=== PATIENT | female | born 1975 ===

== ENCOUNTER 2019-04-16 11:51 | Emergency (ER) | payer MEDICAID ==
[2019-04-16] MEDS ORDERED: ONDANSETRON 4 MG/2 ML INJ IV STA (13:40)
[2019-04-16] MEDS ORDERED: HYDROcodone/ACETAMINOPHEN 5-325 MG TAB PO STA (13:40)
--- NOTE | 2019-04-16 14:23 | Cat Scan Report ---
CT HEAD WITHOUT CONTRAST INDICATION : Altered Mental Status. TECHNIQUE: Axial, coronal and sagittal CT imaging was performed from the skull apex through the skul l base without contrast. All CT scans at this location are performed using CT dose reduction for ALA RA by means of automated exposure control. COMPARISON: None available. FINDINGS: PARENCHYMA: No mass, midline shift, hemorrhage, extraaxial collection or acute territorial infarctio n. VENTRICLES: Symmetric and normal in size. SOFT TISSUES: No significant abnormality of the included soft tissues/orbits. BONES: No acute osseous abnormality. SINUSES: No significant abnormality. ADDITIONAL FINDINGS: None. IMPRESSION: No acute intracranial abnormality. Signer Name: Sumeet Mora MD Signed: 04/16/2019 2:19 PM Workstation Name: [id number]
--- NOTE | 2019-04-16 14:27 | Event Note ---
Date of service: 04/16/19 Face to Face: The patient is a 43-year-old female. This patient is not known to myself previously. She was reportedly sent to this department for confused behavior. The patient is a very poor historian. She is very confused. She does not have enclosed paperwork, with the exception of admission discharge medication reconciliation orders, apparently, with a diagnosis of opioid and benzodiazepine abuse The patient indicates she has bilateral lower extremity pain. She also indicates that she has chest pain, abdominal pain and headache. She cannot describe the nature of the pain. She indicates her pain gets worse with palpation. She knows her name, she is not sure where she is, she does not know the month, and she does not know the year. She is not accompanied by friends or family. Her last known well time is not explicitly known. When we attempt to clarify the nature of her complaints, the patient sits up, holds her head, and appears to be frustrated. Her motor exam is nonfocal, she is speaking in full sentences, she has a tender left lower quadrant, and her bilateral lower extremities appear to be swollen, with warmth, and some hyperemia. 2+ pulses noted in the bilateral upper and lower extremities. Suspect multifactorial etiology, likely including polypharmacy, with probable superimposed psychiatric component, however, patient will require medical workup and evaluation. Given broad differential diagnosis, CT scan of the brain, CT scan of the abdomen and pelvis, screening laboratory studies, EKG, medication reconciliation have been requested. She does not have a fever, there is no neck pain or neck stiffness, this is unlikely to be meningitis or central nervous sy stem infection. Psychiatric consultation has also been requested. There is no prior EKG available for comparison. The EKG shows a sinus rhythm, 87 bpm, there is low voltage, there is a left axis deviation, there is poor R progression, the EKG is abnormal, it is not consistent with ST elevation myocardial infarction There is no prior EKG available for comparison 5:10 PM, 04/16/2019 X-ray of the chest, bilateral lower extremities are unremarkable. Noncontrast CT scan of the brain, abdomen and pelvis negative for acute disease. DVT studies pending interpretation at this time. Lab Results 04/16/19 04/16/19 04/16/19 Range/Units 13:53 14:00 14:00 WBC 3.4 L (4.5-11.0) K/mm3 RBC 3.84 (3.65-5.03) M/mm3 Hgb 11.9 (10.1-14.3) gm/dl Hct 35.0 (30.3-42.9) % MCV 91 (79-97) fl MCH 31 (28-32) pg MCHC 34 (30-34) % RDW 14.7 (13.2-15.2) % Plt Count 227 (140-440) K/mm3 Lymph % (Auto) Loom Doffer [place] % (Auto) Loom Doffer Eos % (Auto) Loom Doffer Baso % (Auto) Loom Doffer Lymph # Loom Doffer [place] # Loom Doffer Eos # Loom Doffer Baso # Loom Doffer Seg Neutrophils % Loom Doffer Seg Neutrophils # Loom Doffer PT (12.2-14.9) Sec. INR (0.87-1.13) APTT (24.2-36.6) Sec. Sodium (137-145) mmol/L Potassium (3.6-5.0) mmol/L Chloride (98-107) mmol/L Carbon Dioxide (22-30) mmol/L Anion Gap mmol/L BUN (7-17) mg/dL Creatinine (0.7-1.2) mg/dL Estimated GFR ml/min BUN/Creatinine Ratio % Glucose (65-100) mg/dL Lactic Acid 1.30 (0.7-2.0) mmol/L Calcium (8.4-10.2) mg/dL Total Bilirubin (0.1-1.2) mg/dL AST (5-40) units/L ALT (7-56) units/L Alkaline Phosphatase (35-129) units/L Troponin T (0.00-0.029) ng/mL Total Protein (6.3-8.2) g/dL Albumin (3.9-5) g/dL Albumin/Globulin Ratio % Urine Opiates Screen Presumptive negative Urine Methadone Screen Presumptive negative Ur Barbiturates Screen Presumptive negative Ur Phencyclidine Scrn Presumptive negative Ur Amphetamines Screen Presumptive negative U Benzodiazepines Scrn Presumptive negative Urine Cocaine Screen Presumptive negative U Marijuana (THC) Screen Presumptive negative Drugs of Abuse Note Disclamer Plasma/Serum Alcohol (0-0.07) % 04/16/19 04/16/19 04/16/19 Range/Units 14:00 14:20 14:20 WBC (4.5-11.0) K/mm3 RBC (3.65-5.03) M/mm3 Hgb (10.1-14.3) gm/dl Hct (30.3-42.9) % MCV (79-97) fl MCH (28-32) pg MCHC (30-34) % RDW (13.2-15.2) % Plt Count (140-440) K/mm3 Lymph % (Auto) [place] % (Auto) Eos % (Auto) Baso % (Auto) Lymph # [place] # Eos # Baso # Seg Neutrophils % Seg Neutrophils # PT 12.8 (12.2-14.9) Sec. INR 0.95 (0.87-1.13) APTT 30.5 (24.2-36.6) Sec. Sodium 139 (137-145) mmol/L Potassium 4.6 (3.6-5.0) mmol/L Chloride 100.8 (98-107) mmol/L Carbon Dioxide 22 (22-30) mmol/L Anion Gap 21 mmol/L BUN 11 (7-17) mg/dL Creatinine 0.8 (0.7-1.2) mg/dL Estimated GFR > 60 ml/min BUN/Creatinine Ratio 14 % Glucose 89 (65-100) mg/dL Lactic Acid (0.7-2.0) mmol/L Calcium 9.8 (8.4-10.2) mg/dL Total Bilirubin 0.30 (0.1-1.2) mg/dL AST 17 (5-40) units/L ALT 12 (7-56) units/L Alkaline Phosphatase 52 (35-129) units/L Troponin T < 0.010 (0.00-0.029) ng/mL Total Protein 6.1 L (6.3-8.2) g/dL Albumin 3.8 L (3.9-5) g/dL Albumin/Globulin Ratio 1.7 % Urine Opiates Screen Urine Methadone Screen Ur Barbiturates Screen Ur Phencyclidine Scrn Ur Amphetamines Screen U Benzodiazepines Scrn Urine Cocaine Screen U Marijuana (THC) Screen Drugs of Abuse Note Plasma/Serum Alcohol < 0.01 (0-0.07) % Lab Results 04/16/19 04/16/19 04/16/19 Range/Units 13:53 14:00 14:00 WBC 3.4 L (4.5-11.0) K/mm3 RBC 3.84 (3.65-5.03) M/mm3 Hgb 11.9 (10.1-14.3) gm/dl Hct 35.0 (30.3-42.9) % MCV 91 (79-97) fl MCH 31 (28-32) pg MCHC 34 (30-34) % RDW 14.7 (13.2-15.2) % Plt Count 227 (140-440) K/mm3 Lymph % (Auto) Loom Doffer [place] % (Auto) Loom Doffer Eos % (Auto) Loom Doffer Baso % (Auto) Loom Doffer Lymph # Loom Doffer [place] # Loom Doffer Eos # Loom Doffer Baso # Loom Doffer Seg Neutrophils % Loom Doffer Seg Neutrophils # Loom Doffer PT (12.2-14.9) Sec. INR (0.87-1.13) APTT (24.2-36.6) Sec. Sodium (137-145) mmol/L Potassium (3.6-5.0) mmol/L Chloride (98-107) mmol/L Carbon Dioxide (22-30) mmol/L Anion Gap mmol/L BUN (7-17) mg/dL Creatinine (0.7-1.2) mg/dL Estimated GFR ml/min BUN/Creatinine Ratio % Glucose (65-100) mg/dL Lactic Acid 1.30 (0.7-2.0) mmol/L Calcium (8.4-10.2) mg/dL Total Bilirubin (0.1-1.2) mg/dL AST (5-40) units/L ALT (7-56) units/L Alkaline Phosphatase (35-129) units/L Troponin T (0.00-0.029) ng/mL Total Protein (6.3-8.2) g/dL Albumin (3.9-5) g/dL Albumin/Globulin Ratio % Urine Opiates Screen Presumptive negative Urine Methadone Screen Presumptive negative Ur Barbiturates Screen Presumptive negative Ur Phencyclidine Scrn Presumptive negative Ur Amphetamines Screen Presumptive negative U Benzodiazepines Scrn Presumptive negative Urine Cocaine Screen Presumptive negative U Marijuana (THC) Screen Presumptive negative Drugs of Abuse Note Disclamer Plasma/Serum Alcohol (0-0.07) % 04/16/19 04/16/19 04/16/19 Range/Units 14:00 14:20 14:20 WBC (4.5-11.0) K/mm3 RBC (3.65-5.03) M/mm3 Hgb (10.1-14.3) gm/dl Hct (30.3-42.9) % MCV (79-97) fl MCH (28-32) pg MCHC (30-34) % RDW (13.2-15.2) % Plt Count (140-440) K/mm3 Lymph % (Auto) [place] % (Auto) Eos % (Auto) Baso % (Auto) Lymph # [place] # Eos # Baso # Seg Neutrophils % Seg Neutrophils # PT 12.8 (12.2-14.9) Sec. INR 0.95 (0.87-1.13) APTT 30.5 (24.2-36.6) Sec. Sodium 139 (137-145) mmol/L Potassium 4.6 (3.6-5.0) mmol/L Chloride 100.8 (98-107) mmol/L Carbon Dioxide 22 (22-30) mmol/L Anion Gap 21 mmol/L BUN 11 (7-17) mg/dL Creatinine 0.8 (0.7-1.2) mg/dL Estimated GFR > 60 ml/min BUN/Creatinine Ratio 14 % Glucose 89 (65-100) mg/dL Lactic Acid (0.7-2.0) mmol/L Calcium 9.8 (8.4-10.2) mg/dL Total Bilirubin 0.30 (0.1-1.2) mg/dL AST 17 (5-40) units/L ALT 12 (7-56) units/L Alkaline Phosphatase 52 (35-129) units/L Troponin T < 0.010 (0.00-0.029) ng/mL Total Protein 6.1 L (6.3-8.2) g/dL Albumin 3.8 L (3.9-5) g/dL Albumin/Globulin Ratio 1.7 % Urine Opiates Screen Urine Methadone Screen Ur Barbiturates Screen Ur Phencyclidine Scrn Ur Amphetamines Screen U Benzodiazepines Scrn Urine Cocaine Screen U Marijuana (THC) Screen Drugs of Abuse Note Plasma/Serum Alcohol < 0.01 (0-0.07) % Vital Signs 04/16/19 12:27 Temperature 97.8 F Pulse Rate 76 Respiratory 18 Rate Blood Pressure 102/46 O2 Sat by Pulse 97 Oximetry Reassessed at 6:00 PM, 04/16/2019 DVT study negative. Mental status much improved. X-rays negative. Mentating appropriately. At this point in time, does not meet criteria for hospitaliza tion or medical admission.
[2019-04-16 14:28] LABS: Hemoglobin 11.9 gm/dl (10.1-14.3); Mean Corpuscular HGB Conc 34 % (30-34); Mean Corpuscular Volume 91 fl (79-97); Red Blood Count 3.84 M/mm3 (3.65-5.03); Red Cell Distribution Width 14.7 % (13.2-15.2)
[2019-04-16 14:30] LABS: Platelet Count 227 K/mm3 (140-440)
[2019-04-16 14:38] LABS: Amphetamine Screen,Urine PRESUMPTIVE NEGATIVE; Benzodiazepines Screen,Urine PRESUMPTIVE NEGATIVE; Cannabinoid Screen,Urine PRESUMPTIVE NEGATIVE; Cocaine Screen,Urine PRESUMPTIVE NEGATIVE; Methadone Screen,Urine PRESUMPTIVE NEGATIVE; Opiate Screen,Urine PRESUMPTIVE NEGATIVE
[2019-04-16 14:48] LABS: INR 0.95 (0.87-1.13)
[2019-04-16 14:55] LABS: Partial Thromboplastin Time 30.5 Sec. (24.2-36.6)
[2019-04-16 15:11] LABS: Alanine Aminotransferase 12 units/L (7-56); Albumin 3.8 g/dL (3.9-5); BUN/Creatinine Ratio 14; Blood Urea Nitrogen 11 mg/dL (7-17); Calcium 9.8 mg/dL (8.4-10.2); Hemolysis Index 24
--- NOTE | 2019-04-16 15:52 | Cat Scan Report ---
CT ABDOMEN AND PELVIS WITHOUT CONTRAST HISTORY: Left lower quadrant abdominal pain, confusion COMPARISON: None. TECHNIQUE: Axial CT images were obtained through the abdomen and pelvis without IV contrast. Sagittal and coronal reformatted images. All CT scans at this location are performed using CT dose reduction for ALARA by means of automated exposure control. FINDINGS: CT ABDOMEN: Lung Bases: Small bilateral layering pleural effusions measure up to 1 cm in thickness. There are mil d congestive changes in the lower lung zones. Heart size is within normal limits. Liver: No significant abnormality. Biliary: No significant abnormality. Spleen: No significant abnormality. Unenlarged. Pancreas: No significant abnormality. Adrenals: A 3 mm calyceal stone is noted in the mid left kidney. No associated hydronephrosis. The ki dneys and collecting systems are unremarkable otherwise. Kidneys: No significant abnormality. Lymphatics: No lymphadenopathy. Vasculature: No significant abnormality. Bowel/Peritoneum: No significant abnormality. No free air. No free fluid. There is moderate fecal ret ention in the colon. The appendix is not confidently identified. CT PELVIS: : Hysterectomy changes. The ovaries are unremarkable. Osseous Structures: No significant abnormality. Additional Findings: None IMPRESSION: No acute inflammatory process is identified. 3 mm left renal stone, nonobstructing. Mild constipation. Assumed hysterectomy and appendectomy. Small bilateral pleural effusions. Signer Name: Pastor Madera Jr, MD Signed: 04/16/2019 3:47 PM Workstation Name: [id number]
--- NOTE | 2019-04-16 17:13 | XRay Report ---
CHEST 1 VIEW 04/16/2019 4:34 PM INDICATION / CLINICAL INFORMATION: Chest pain. COMPARISON: None available. FINDINGS: SUPPORT DEVICES: None. HEART / MEDIASTINUM: No significant abnormality. LUNGS / PLEURA: No significant pulmonary or pleural abnormality. No pneumothorax. ADDITIONAL FINDINGS: No significant additional findings. IMPRESSION: 1. No acute findings. Signer Name: Issac Salmeron MD Signed: 04/16/2019 5:09 PM Workstation Name: [id number]
--- NOTE | 2019-04-16 17:14 | XRay Report ---
XR tib/fib BILAT 2V INDICATION / CLINICAL INFORMATION: Bilateral lower extremity erythema and altered mental status. COMPARISON: None available. FINDINGS: BONES/JOINT(S): No acute fracture or subluxation. No significant degenerative changes. SOFT TISSUES: There is no soft tissue gas or radiopaque foreign body. There is nonspecific subcutaneo us edema in both calves. ADDITIONAL FINDINGS: None. Signer Name: Issac Salmeron MD Signed: 04/16/2019 5:09 PM Workstation Name: [id number]
--- NOTE | 2019-04-16 17:16 | Vascular Lab Report ---
DUPLEX DOPPLER BILATERAL LOWER EXTREMITY VEINS INDICATION: Lower extremity pain and swelling FINDINGS: There is no thrombus within the deep veins of either lower extremity from the common femoral to the c correction veins. There is normal compression and augmentation on spectral analysis. IMPRESSION: No sonographic evidence for DVT in either lower extremity. Signer Name: Issac Salmeron MD Signed: 04/16/2019 5:12 PM Workstation Name: [email or web address] [id number]
[2019-04-16] MEDS ORDERED: CLINDAMYCIN 600 MG/50 mL 600 MG/50 ML BAG IV STA (17:26)
--- NOTE | 2019-04-16 17:33 | Emergency Department Report ---
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 Toxic Vacuolation Dohle Bodies Pelger-Huet Anomaly Negrito Rods Platelet Estimate Clumped Platelets Plt Clumps, EDTA Large Platelets Giant Platelets Platelet Satelliting Plt Morphology Comment RBC Morphology Dimorphic RBCs Polychromasia Hypochromasia Poikilocytosis Anisocytosis Microcytosis Macrocytosis Spherocytes Pappenheimer Bodies Sickle Cells Target Cells Tear Drop Cells Ovalocytes Stomatocytes Helmet Cells Guzman-Hallwood Bodies Palatine Rings Duane Cells Bite Cells Crenated Cell Elliptocytes Acanthocytes (Spur) Rouleaux Hemoglobin C Crystals Schistocytes Malaria parasites Dudley Bodies Hem Pathologist Commnt PT (12.2-14.9) Sec. INR (0.87-1.13) APTT (24.2-36.6) Sec. Sodium (137-145) mmol/L Potassium (3.6-5.0) mmol/L Chloride (98-107) mmol/L Carbon Dioxide (22-30) mmol/L Anion Gap mmol/L BUN (7-17) mg/dL Creatinine (0.7-1.2) mg/dL Estimated GFR ml/min BUN/Creatinine Ratio % Glucose (65-100) mg/dL Lactic Acid 0.70 (0.7-2.0) mmol/L Calcium (8.4-10.2) mg/dL Total Bilirubin (0.1-1.2) mg/dL AST (5-40) units/L ALT (7-56) units/L Alkaline Phosphatase (35-129) units/L Ammonia 30.0 (25-60) umol/L Troponin T (0.00-0.029) ng/mL Total Protein (6.3-8.2) g/dL Albumin (3.9-5) g/dL Albumin/Globulin Ratio % TSH (0.270-4.200) mlU/mL Free T4 (0.76-1.46) ng/dL HCG, Quant < 2 (0-4) mIU/mL Urine Color (Yellow) Urine Turbidity (Clear) Urine pH (5.0-7.0) Ur Specific [place] (1.003-1.030) Urine Protein (Negative) mg/dL Urine Glucose (UA) (Negative) mg/dL Urine Ketones (Negative) mg/dL Urine Blood (Negative) Urine Nitrite (Negative) Urine Bilirubin (Negative) Urine Urobilinogen (<2.0) mg/dL Ur Leukocyte Esterase (Negative) Urine WBC (Auto) (0.0-6.0) /HPF Urine RBC (Auto) (0.0-6.0) /HPF Salicylates (2.8-20.0) mg/dL Urine Opiates Screen Urine Methadone Screen Acetaminophen (10.0-30.0) ug/mL Ur Barbiturates Screen Valproic Acid (50-100) ug/mL Ur Phencyclidine Scrn Ur Amphetamines Screen U Benzodiazepines Scrn Urine Cocaine Screen U Marijuana (THC) Screen Drugs of Abuse Note Plasma/Serum Alcohol (0-0.07) % 04/16/19 04/16/19 04/16/19 Range/Units 16:40 16:50 17:34 WBC (4.5-11.0) K/mm3 RBC (3.65-5.03) M/mm3 Hgb (10.1-14.3) gm/dl Hct (30.3-42.9) % MCV (79-97) fl MCH (28-32) pg MCHC (30-34) % RDW (13.2-15.2) % Plt Count (140-440) K/mm3 Lymph % (Auto) Crawford % (Auto) Eos % (Auto) Baso % (Auto) Lymph # Crawford # Eos # Baso # Add Manual Diff Total Counted Seg Neutrophils % Seg Neuts % (Manual) (40.0-70.0) % Band Neutrophils % % Lymphocytes % (Manual) (13.4-35.0) % Reactive Lymphs % (Man) % Monocytes % (Manual) (0.0-7.3) % Eosinophils % (Manual) (0.0-4.3) % Basophils % (Manual) (0.0-1.8) % Metamyelocytes % % Myelocytes % % Promyelocytes % % Blast Cells % % Nucleated RBC % Seg Neutrophils # Seg Neutrophils # Man (1.8-7.7) K/mm3 Band Neutrophils # K/mm3 Lymphocytes # (Manual) (1.2-5.4) K/mm3 Abs React Lymphs (Man) K/mm3 Monocytes # (Manual) (0.0-0.8) K/mm3 Eosinophils # (Manual) (0.0-0.4) K/mm3 Basophils # (Manual) (0.0-0.1) K/mm3 Metamyelocytes # K/mm3 Myelocytes # K/mm3 Promyelocytes # K/mm3 Blast Cells # K/mm3 WBC Morphology Hypersegmented Neuts Hyposegmented Neuts Hypogranular Neuts Smudge Cells Toxic Granulation Toxic Vacuolation Dohle Bodies Pelger-Huet Anomaly Negrito Rods Platelet Estimate Clumped Platelets Plt Clumps, EDTA Large Platelets Giant Platelets Platelet Satelliting Plt Morphology Comment RBC Morphology Dimorphic RBCs Polychromasia Hypochromasia Poikilocytosis Anisocytosis Microcytosis Macrocytosis Spherocytes Pappenheimer Bodies Sickle Cells Target Cells Tear Drop Cells Ovalocytes Stomatocytes Helmet Cells Guzman-Hallwood Bodies [place] Rings Duane Cells Bite Cells Crenated Cell Elliptocytes Acanthocytes (Spur) Rouleaux Hemoglobin C Crystals Schistocytes Malaria parasites Dudley Bodies Hem Pathologist Commnt PT (12.2-14.9) Sec. INR (0.87-1.13) APTT (24.2-36.6) Sec. Sodium (137-145) mmol/L Potassium (3.6-5.0) mmol/L Chloride (98-107) mmol/L Carbon Dioxide (22-30) mmol/L Anion Gap mmol/L BUN (7-17) mg/dL Creatinine (0.7-1.2) mg/dL Estimated GFR ml/min BUN/Creatinine Ratio % Glucose (65-100) mg/dL Lactic Acid (0.7-2.0) mmol/L Calcium (8.4-10.2) mg/dL Total Bilirubin (0.1-1.2) mg/dL AST (5-40) units/L ALT (7-56) units/L Alkaline Phosphatase (35-129) units/L Ammonia (25-60) umol/L Troponin T < 0.010 (0.00-0.029) ng/mL Total Protein (6.3-8.2) g/dL Albumin (3.9-5) g/dL Albumin/Globulin Ratio % TSH (0.270-4.200) mlU/mL Free T4 0.66 L (0.76-1.46) ng/dL HCG, Quant (0-4) mIU/mL Urine Color Yellow (Yellow) Urine Turbidity Clear (Clear) Urine pH 6.0 (5.0-7.0) Ur Specific [place] 1.011 (1.003-1.030) Urine Protein <15 mg/dl (Negative) mg/dL Urine Glucose (UA) Neg (Negative) mg/dL Urine Ketones Neg (Negative) mg/dL Urine Blood Neg (Negative) Urine Nitrite Neg (Negative) Urine Bilirubin Neg (Negative) Urine Urobilinogen < 2.0 (<2.0) mg/dL Ur Leukocyte Esterase Neg (Negative) Urine WBC (Auto) < 1.0 (0.0-6.0) /HPF Urine RBC (Auto) < 1.0 (0.0-6.0) /HPF Salicylates (2.8-20.0) mg/dL Urine Opiates Screen Urine Methadone Screen Acetaminophen (10.0-30.0) ug/mL Ur Barbiturates Screen Valproic Acid (50-100) ug/mL Ur Phencyclidine Scrn Ur Amphetamines Screen U Benzodiazepines Scrn Urine Cocaine Screen U Marijuana (THC) Screen Drugs of Abuse Note Plasma/Serum Alcohol (0-0.07) % - EKG Data -: EKG Interpreted by Me - Radiology Data Radiology results: pending, report reviewed, image reviewed Critical care attestation.: If time is entered above; I have spent that time in minutes in the direct care of this critically ill patient, excluding procedure time.
[2019-04-16 17:42] LABS: Anisocytosis Few; Basophils % (Manual) 0 % (0.0-1.8); Stomatocytes Few; Total Cells Counted 100
[2019-04-16 17:43] LABS: Large Platelets 1+; Platelet Estimate Consistent w Auto
[2019-04-16 18:25] LABS: Bilirubin,Urine NEG (Negative); Blood,Urine NEG (Negative); Color,Urine Yellow (Yellow); Protein,Urine <15 mg/dL mg/dL (Negative); Urobilinogen,Urine < 2.0 mg/dL (<2.0)
[2019-04-16 18:41] LABS: RBC,Urine < 1.0 /HPF (0.0-6.0); WBC,Urine < 1.0 /HPF (0.0-6.0)
[2019-04-16] MEDS ORDERED: HALOPERIDOL LACTATE 5 MG/1 ML INJ IM PRN (18:48)
[2019-04-16] MEDS ORDERED: ALPRAZolam 1 MG TAB PO ONE (22:15)
[2019-04-16] MEDS ORDERED: ALPRAZolam 1 MG TAB ONE (22:18)
[2019-04-16] MEDS ORDERED: ONDANSETRON 4 MG ODT TAB PO PRN (22:21)
[2019-04-17] MEDS: CLINDAMYCIN 300 MG CAP PO SCH ×4 (00:30→20:00)
[2019-04-17] MEDS ORDERED: LORazepam 1 MG TAB PO ONE (04:46)
[2019-04-17] MEDS: LORazepam 2 MG/ML VIAL IM PRN ×2 (09:42→15:30)
--- NOTE | 2019-04-17 13:27 | Consultation ---
History of Present Illness - Reason for Consult Consult date: 04/17/19 Reason for consult: PSYCHIATRIC ASSESSMENT - History of Present Psychiatric Illness Ms Gonzalez is a 43-year-old female. Patient is alert and oriented to name only patient is dressed appropriately, the patient maintained intermittent eye contact. Patient is unable to give details off why she was brought to the hospital. According To the patient's chart she has a history of depression, anxiety and PTSD.when asked about suicidal homicidal ideation the patient paused for a long Time and then nodded her head indicating no , but she appears unsure. The patient denies seeing or hearing things with a long pause then nodding her head indicating no. The patient speech is pressured, patient is noted confused and disorganized. Patient noted with anxiety trying to remember things. Patient reports that she is scared, patient kept rocking back and forth. When asked about eating and sleeping patient found it hard to answer the question.when asked about medication that she is taking, the patient started crying and was unable to remember. PAST PSYCHIATRIC HISTORY: UNABLE TO ANSWER PAST MEDICAL HISTORY: Family Psychiatric History None reported or documented SOCIAL HISTORY unable to answer confused REVIEW OF SYSTEMS ROS cannot be reliably obtained from the patient due to her confusion and somnolence. MENTAL STATUS pt confused RECOMMENDATIONS MEDICATIONS: start buspar 15mg bid start depakote 500mg bid start prasosin 5mg hs start seroquel 400mg qhs start trazodone 100mg qhs Risks, benefits and alternatives of medications discussed with the patient, questions answered and consent obtained from patient. PSYCHOTHERAPY: Supportive psychotherapy provided MEDICAL: Per primary team DELIRIUM PRECAUTIONS: Please re-orient patient frequently, keep lights on during the day, and minimize benzodiazepines and opiates as these medications could worsen patient's confusion. HISTORICAL GUIDE: DISPOSITION: Based on my evaluation, the patient is unable to demonstrate understanding, appreciation, or reasoning regarding her medical condition and need for treatment. At this time I do not believe that the patient has decision- making capacity, indication for acute inpatient psychiatric hospitalization at this time is warranted, the patient is confused , disorganized LEGAL STATUS: 1013 FOLLOW-UP: Will follow Medications and Allergies Allergies Allergy/AdvReac Type Severity Reaction Status Date / Time No Known Allergies Allergy Unverified 04/16/19 12:34 Home Medications Medication Instructions Recorded Confirmed Last Taken Type Buprenorphine HCl/Naloxone HCl 1 each SL BID 04/16/19 04/16/19 Unknown History [Suboxone 2 mg-0.5 mg Sl Film] Citalopram Hydrobromide [Celexa] 40 mg PO DAILY 04/16/19 04/16/19 Unknown History Divalproex ER [DepaKOTE ER] 500 mg PO BID 04/16/19 04/16/19 Unknown History Prazosin [Minipress] 5 mg PO HS 04/16/19 04/16/19 Unknown History Quetiapine Fumarate [SEROquel] 400 mg PO HS 04/16/19 04/16/19 Unknown History busPIRone [Buspar] 15 mg PO BID 04/16/19 04/16/19 Unknown History cloNIDine [Catapres] 0.1 mg PO QHS 04/16/19 04/16/19 Unknown History levETIRAcetam [Keppra] 500 mg PO BID 04/16/19 04/16/19 Unknown History traZODone [Desyrel] 100 mg PO QHS 04/16/19 04/16/19 Unknown History Active Meds: Active Medications Clindamycin HCl (Cleocin) 300 mg PO Q6HR DARIELA Stop: 04/23/19 18:01 Last Admin: 04/17/19 12:56 Dose: 300 mg Documented by: Haloperidol Lactate (Haldol) 5 mg IM Q6HR PRN PRN Reason: Agitation Lorazepam (Ativan) 2 mg IM Q4HR PRN PRN Reason: Agitation Last Admin: 04/17/19 09:42 Dose: 2 mg Documented by: Ondansetron HCl (Zofran Odt) 4 mg PO Q6HR PRN PRN Reason: Nausea Mental Status Exam - Vital signs Last Vital Signs Temp 98.4 F 04/17/19 01:35 Pulse 81 04/17/19 01:35 Resp 18 04/17/19 01:35 BP 101/56 04/17/19 01:35 Pulse Ox 96 04/17/19 01:35 Results Result Diagrams: 04/16/19 14:00 04/16/19 14:20 Abnormal lab results 04/16/19 04/16/19 04/16/19 Range/Units 14:00 14:20 15:14 WBC 3.4 L (4.5-11.0) K/mm3 Seg Neuts % (Manual) 31.0 L (40.0-70.0) % Lymphocytes % (Manual) 49.0 H (13.4-35.0) % Monocytes % (Manual) 16.0 H (0.0-7.3) % Seg Neutrophils # Man 1.1 L (1.8-7.7) K/mm3 Total Protein 6.1 L (6.3-8.2) g/dL Albumin 3.8 L (3.9-5) g/dL TSH (0.270-4.200) mlU/mL Free T4 (0.76-1.46) ng/dL Salicylates < 0.3 L (2.8-20.0) mg/dL Acetaminophen (10.0-30.0) ug/mL 04/16/19 04/16/19 04/16/19 Range/Units 15:14 15:14 16:40 WBC (4.5-11.0) K/mm3 Seg Neuts % (Manual) (40.0-70.0) % Lymphocytes % (Manual) (13.4-35.0) % Monocytes % (Manual) (0.0-7.3) % Seg Neutrophils # Man (1.8-7.7) K/mm3 Total Protein (6.3-8.2) g/dL Albumin (3.9-5) g/dL TSH 5.140 H (0.270-4.200) mlU/mL Free T4 0.66 L (0.76-1.46) ng/dL Salicylates (2.8-20.0) mg/dL Acetaminophen < 5.0 L (10.0-30.0) ug/mL All other labs normal.
[2019-04-17 19:44] VITALS: BP 117/70
[2019-04-17] MEDS ORDERED: QUEtiapine 200 MG TAB PO SCH (22:00)
[2019-04-17] MEDS ORDERED: traZODone 100 MG TAB PO SCH (22:00)
[2019-04-17] MEDS ORDERED: QUETIAPINE FUMARATE 400 MG PO SCH (22:00)
[2019-04-17] MEDS ORDERED: DIVALPROEX ER 500 MG TAB PO SCH (22:00)
[2019-04-17] MEDS ORDERED: busPIRone 10 MG TAB PO SCH (22:00)
[2019-04-17] MEDS ORDERED: PRAZOSIN 5 MG CAP PO SCH (22:00)
[2019-04-18] MEDS ORDERED: CITALOPRAM 20 MG TAB PO SCH (10:00)
[2019-04-18] MEDS ORDERED: CITALOPRAM HYDROBROMIDE 40 MG PO SCH (10:00)
== END 2019-04-17 23:33 ==
LOC: EEVIPCON 11:51 → ED 11:51
DX: R46.89 Other symptoms and signs involving appearance and behavior (principal); G40.909 Epilepsy, unspecified, not intractable, without status epilepticus; Z79.899 Other long term (current) drug therapy
CPT/HCPCS: 36415; 70450; 71045; 73590; 74176; 80053; 80164; 80307; 81001; 82140; 84439; 84443; 84484; 84702; 85007; 85025; 85610; 85730; 93005; 93010; 93970; 96365; 96372; 96375; 99285; J2060; J2405; 80320; G0480

== ENCOUNTER 2021-11-04 20:38 | Emergency (ER) | payer SELFPAY ==
[2021-11-05 00:27] LABS: Amphetamine Screen,Urine PRESUMPTIVE NEGATIVE; Benzodiazepines Screen,Urine PRESUMPTIVE NEGATIVE; Cannabinoid Screen,Urine PRESUMPTIVE POSITIVE; Cocaine Screen,Urine PRESUMPTIVE NEGATIVE; Methadone Screen,Urine PRESUMPTIVE NEGATIVE; Opiate Screen,Urine PRESUMPTIVE NEGATIVE
[2021-11-05 00:31] LABS: Color,Urine Colorless (Yellow)
[2021-11-05 00:35] LABS: RBC,Urine < 1.0 /HPF (0.0-6.0)
[2021-11-05 00:35] LABS: Basophils % (Auto) 0.3 % (0.0-1.8); Eosinophils # (Auto) 0.2 K/mm3 (0.0-0.4); Eosinophils % (Auto) 3.2 % (0.0-4.3); Hemoglobin 13.6 gm/dl (10.1-14.3); Lymphocytes # (Auto) 1.5 K/mm3 (1.2-5.4); Lymphocytes % (Auto) 27.6 % (13.4-35.0); Mean Corpuscular HGB Conc 34 % (30-34); Mean Corpuscular Volume 92 fl (79-97); Monocytes # (Auto) 0.5 K/mm3 (0.0-0.8); Monocytes % (Auto) 9.2 % (0.0-7.3); Platelet Count 253 K/mm3 (140-440); Red Blood Count 4.35 M/mm3 (3.65-5.03); Red Cell Distribution Width 14.2 % (13.2-15.2)
[2021-11-05 00:36] LABS: WBC,Urine < 1.0 /HPF (0.0-6.0)
[2021-11-05 00:47] LABS: Blood Urea Nitrogen 10 mg/dL (7-17); Calcium 9.6 mg/dL (8.4-10.2); Hemolysis Index 8
[2021-11-05 00:48] LABS: BUN/Creatinine Ratio 14
--- NOTE | 2021-11-05 01:57 | Emergency Department Report ---
ED Medical Clearance HPI - General Chief complaint: Medical Clearance Stated complaint: MEDICAL CLEARANCE Time Seen by Provider: 11/05/21 00:40 Source: patient, EMS Mode of arrival: Stretcher Limitations: No Limitations - History of Present Illness Initial comments: Patient is a 46-year-old female who presents from rehab after she returned from the pharmacy appearing altered. Patient denies using but states that she thinks she is still detoxing. She was at [facility] for 5 days prior to going to [place] yesterday. They sent her here this evening for medical clearance. She states she was going to the pharmacy to roller picker her medications but she was unable to fill them due to insurance. Patient's originally told me she was unable to fill any of her medications including her Keppra and stated she was very concerned that she would have a seizure. MD Complaint: medical clearance request Home medications: Home Medications Medication Instructions Recorded Confirmed Last Taken Buprenorphine HCl/Naloxone HCl 1 each SL BID 04/16/19 04/16/19 Unknown [Suboxone 2 mg-0.5 mg Sl Film] Citalopram Hydrobromide [Celexa] 40 mg PO DAILY 04/16/19 04/16/19 Unknown Divalproex ER [DepaKOTE ER] 500 mg PO BID 04/16/19 04/16/19 Unknown Prazosin [Minipress] 5 mg PO HS 04/16/19 04/16/19 Unknown Quetiapine Fumarate [SEROquel] 400 mg PO HS 04/16/19 04/16/19 Unknown busPIRone [Buspar] 15 mg PO BID 04/16/19 04/16/19 Unknown cloNIDine [Catapres] 0.1 mg PO QHS 04/16/19 04/16/19 Unknown levETIRAcetam [Keppra] 500 mg PO BID 04/16/19 04/16/19 Unknown traZODone [Desyrel] 100 mg PO QHS 04/16/19 04/16/19 Unknown Citalopram 600 mg pe PO QDAY 04/30/19 12/07/20 12/07/20 17:24 Divalproex ER [DepaKOTE ER] 500 mg PO BID 04/30/19 12/07/20 12/05/20 19:00 Prazosin [Minipress] 5 mg PO DAILY 04/30/19 12/07/20 12/05/20 19:00 busPIRone [Buspar] 10 tab PO BID 04/30/19 12/07/20 Unknown cloNIDine [Catapres] 0.1 mg PO BID 04/30/19 12/07/20 Unknown hydrOXYzine HCL [Atarax] 50 mg PO DAILY 04/30/19 12/07/20 Unknown levETIRAcetam [Keppra TAB] 1,000 mg PO BID 04/30/19 12/07/20 12/07/20 07:00 traZODone [Desyrel] 100 mg PO DAILY 04/30/19 12/07/20 Unknown SEROquel 600 mg PO DAILY 12/07/20 12/07/20 12/06/20 19:00 Previous Rx's Medication Instructions Recorded Last Taken Type ALPRAZolam [Xanax TAB] 0.25 mg PO BID PRN #6 tab 04/30/19 12/05/20 19:00 Rx LORazepam [Ativan] 1 mg PO BID #6 tab 12/07/20 Unknown Rx Ondansetron [Zofran Odt] 4 mg PO Q6HR PRN #15 tab.rapdis 12/23/20 Unknown Rx Allergies/Adverse reactions: Allergies Allergy/AdvReac Type Severity Reaction Status Date / Time No Known Allergies Allergy Unverified 10/24/21 09:10 ED Review of Systems ROS: Stated complaint: MEDICAL CLEARANCE Other details as noted in HPI Comment: All other systems reviewed and negative Constitutional: denies: chills, fever Eyes: denies: vision change ENT: denies: throat pain, congestion Respiratory: denies: cough, shortness of breath Cardiovascular: denies: chest pain, palpitations, edema Endocrine: denies: intolerance to cold, intolerance to heat, unexplained weight gain, unexplained weight loss Gastrointestinal: denies: abdominal pain, nausea, vomiting, diarrhea, melena, hematochezia Genitourinary: denies: dysuria, frequency, hematuria Musculoskeletal: denies: back pain Skin: denies: rash Neurological: denies: headache, weakness, numbness, paresthesias Psychiatric: depression (Chronic). denies: anxiety (Chronic), homicidal thoughts, suicidal thoughts Hematological/Lymphatic: denies: easy bleeding, easy bruising ED Past Medical Hx - Past Medical History Previous Medical History?: Yes Hx Seizures: Yes Hx Psychiatric Treatment: Yes (depression, anxiety, PTSD) - Surgical History Past Surgical History?: Yes Additional Surgical History: hysterectomy - Social History Smoking Status: Current Every Day Smoker Substance Use Type: None - Medications Home Medications: Home Medications Medication Instructions Recorded Confirmed Last Taken Type Buprenorphine HCl/Naloxone HCl 1 each SL BID 04/16/19 04/16/19 Unknown History [Suboxone 2 mg-0.5 mg Sl Film] Citalopram Hydrobromide [Celexa] 40 mg PO DAILY 04/16/19 04/16/19 Unknown History Divalproex ER [DepaKOTE ER] 500 mg PO BID 04/16/19 04/16/19 Unknown History Prazosin [Minipress] 5 mg PO HS 04/16/19 04/16/19 Unknown History Quetiapine Fumarate [SEROquel] 400 mg PO HS 04/16/19 04/16/19 Unknown History busPIRone [Buspar] 15 mg PO BID 04/16/19 04/16/19 Unknown History cloNIDine [Catapres] 0.1 mg PO QHS 04/16/19 04/16/19 Unknown History levETIRAcetam [Keppra] 500 mg PO BID 04/16/19 04/16/19 Unknown History traZODone [Desyrel] 100 mg PO QHS 04/16/19 04/16/19 Unknown History ALPRAZolam [Xanax TAB] 0.25 mg PO BID PRN #6 tab 04/30/19 12/07/20 12/05/20 19:00 Rx Citalopram 600 mg pe PO QDAY 04/30/19 12/07/20 12/07/20 17:24 History Divalproex ER [DepaKOTE ER] 500 mg PO BID 04/30/19 12/07/20 12/05/20 19:00 History Prazosin [Minipress] 5 mg PO DAILY 04/30/19 12/07/20 12/05/20 19:00 History busPIRone [Buspar] 10 tab PO BID 04/30/19 12/07/20 Unknown History cloNIDine [Catapres] 0.1 mg PO BID 04/30/19 12/07/20 Unknown History hydrOXYzine HCL [Atarax] 50 mg PO DAILY 04/30/19 12/07/20 Unknown History levETIRAcetam [Keppra TAB] 1,000 mg PO BID 04/30/19 12/07/20 12/07/20 07:00 History traZODone [Desyrel] 100 mg PO DAILY 04/30/19 12/07/20 Unknown History LORazepam [Ativan] 1 mg PO BID #6 tab 12/07/20 Unknown Rx SEROquel 600 mg PO DAILY 12/07/20 12/07/20 12/06/20 19:00 History Ondansetron [Zofran Odt] 4 mg PO Q6HR PRN #15 tab.rapdis 12/23/20 Unknown Rx ED Physical Exam - General Limitations: No Limitations General appearance: alert, in no apparent distress - Head Head exam: Present: atraumatic, normocephalic - Eye Eye exam: Present: normal appearance, PERRL - ENT ENT exam: Present: normal exam, mucous membranes moist - Neck Neck exam: Present: normal inspection. Absent: tenderness, meningismus - Respiratory Respiratory exam: Present: normal lung sounds bilaterally. Absent: respiratory distress, wheezes, rales, rhonchi, stridor - Cardiovascular Cardiovascular Exam: Present: regular rate, normal rhythm, normal heart sounds - GI/Abdominal GI/Abdominal exam: Present: soft. Absent: distended - Extremities Exam Extremities exam: Present: normal inspection, full ROM - Back Exam Back exam: Present: normal inspection, full ROM - Neurological Exam Neurological exam: Present: alert, oriented X3, CN II-XII intact - Psychiatric Psychiatric exam: Present: normal affect, normal mood - Skin Skin exam: Present: warm, dry, intact ED Course - Reevaluation(s) Reevaluation #1: 11/05/21 02:[address] Ramirez. We are unable to dispense patient's Keppra or other meds but can give her a dose here. Keppra was ordered and patient informed of same. She then stated "that is the only medication they would fill at [facility] so I just took that right before I came." Order was then canceled. Patient's drug screen did show positive for marijuana. Patient states that she was a heavy user and last use was 5 days ago. She denies using any marijuana to day. Patient is answering questions appropriately oriented x3 and appropriately concerned about her addiction. She has a plan to go to a year-long treatment program in [place] and is scheduled for that in 3 days. She has medically cleared to go back to [place]. 11/05/21 02:37 ED Medical Decision Making - Lab Data Result diagrams: 11/05/21 00:02 11/05/21 00:02 - Medical Decision Making Patient is alert and oriented x3 here this evening in appropriate for clearance back to [place]. ED Disposition Clinical Impression: Medical clearance for psychiatric admission, Addiction to drug, Opiate addiction Disposition: [facility] Is pt being admited?: No Condition: Stable Instructions: Preventive Care 40-64 Years Old, Female, Medical Screening Exam, Finding Treatment for Addiction Time of Disposition: 02:40
[2021-11-05] MEDS ORDERED: levETIRAcetam 500 MG TAB PO ONE (02:25)
[2021-11-05 02:53] VITALS: BP 126/80
== END 2021-11-05 10:03 ==
LOC: ED 20:38
DX: Z13.30 Encounter for screening examination for mental health and behavioral disorders, unspecified (principal); F19.20 Other psychoactive substance dependence, uncomplicated; F11.20 Opioid dependence, uncomplicated
CPT/HCPCS: 36415; 80048; 80307; 80320; 81001; 85025; 99284; G0480